=== PATIENT | male | born 1945 | race Caucasian/White ===

== ENCOUNTER 2017-02-16 07:02 | Day surgery (SDC) | payer MEDICARE ==
[~2017-02-16] VITALS: Ht 175.3 cm; Wt 72.6 kg
[~2017-02-16 07:02] MED LIST: ADLT ASA LOW81 MG PO; AMITRIPTYLIN25 MG PO; AMLODIPINE5 MG PO; CLARITIN10 M1 PO; OMEPRAZOLE20 MG PO; TAMSULOSIN HCL0.4 MG PO; TERAZOSIN10 MG OR
[2017-02-16 09:30] VITALS: BP 114/59
== END 2017-02-16 10:15 | disposition home or self-care (01) ==
LOC: ENDO 07:02
PROVIDERS: ATTEND Surgery
PROC: 0DJD8ZZ Inspection of Lower Intestinal Tract, Via Natural or Artificial Opening Endoscopic (ICD-10-PCS; principal; 2017-02-16)
DX: Z12.11 Encounter for screening for malignant neoplasm of colon (principal); K57.30 Diverticulosis of large intestine without perforation or abscess without bleeding

== ENCOUNTER → 2018-06-06 | Outpatient (REF) | payer MEDICARE ==
[~2018-06-06] VITALS: Ht 172.7 cm; Wt 71.7 kg
[2018-06-06 14:37] VITALS: BP 136/75
== END | disposition home or self-care (01) ==
LOC: PO 11:12 → ORM 11:15
PROVIDERS: ATTEND Surgery
DX: Z01.818 Encounter for other preprocedural examination (principal); Z12.11 Encounter for screening for malignant neoplasm of colon; K21.9 Gastro-esophageal reflux disease without esophagitis; I10 Essential (primary) hypertension; Z90.49 Acquired absence of other specified parts of digestive tract; Z98.890 Other specified postprocedural states; Z97.2 Presence of dental prosthetic device (complete) (partial)

== ENCOUNTER → 2018-06-14 | Day surgery (SDC) | payer MEDICARE ==
[2018-06-14 10:15] VITALS: BP 118/65
== END | disposition home or self-care (01) ==
LOC: ENDO 07:55
PROVIDERS: ATTEND Surgery
PROC: 0DJD8ZZ Inspection of Lower Intestinal Tract, Via Natural or Artificial Opening Endoscopic (ICD-10-PCS; principal; 2018-06-14)
DX: Z12.11 Encounter for screening for malignant neoplasm of colon (principal); K57.30 Diverticulosis of large intestine without perforation or abscess without bleeding
CPT/HCPCS: G0104

== ENCOUNTER 2019-06-06 | Day surgery (SDC) | payer MEDICARE | END 2019-06-06 11:03 | disposition home or self-care (01) | PROC: 0DJD8ZZ Inspection of Lower Intestinal Tract, Via Natural or Artificial Opening Endoscopic (ICD-10-PCS; principal; 2019-06-06) | DX: Z12.11 Encounter for screening for malignant neoplasm of colon (principal); K57.30 Diverticulosis of large intestine without perforation or abscess without bleeding; Q43.8 Other specified congenital malformations of intestine; K64.8 Other hemorrhoids ==